=== PATIENT | male | born 1970 | race Caucasian/White ===

== ENCOUNTER 2019-01-09 09:50 | Day surgery (SDC) | payer OTHER ==
[2019-01-09] VITALS (7 sets, daily range): BP systolic 103–121; BP diastolic 69–86; PULSE 50–65; TEMP 97.8–98.5
[~2019-01-09] VITALS: Ht 182.9 cm; Wt 77.7 kg
[~2019-01-09 09:50] MED LIST: AMOXICILLIN 8751 TAB PO; PERCOCET 325 MG1 TA2 PO; VICODIN 5/5001 UDTAB PO
--- NOTE | 2019-01-09 14:46 | NUR ---
PT RETURNED PER CART INTO BAY1 AFTER PROCEDURE. A/OX3, DENIES PAIN, DISCOMFORT OR NAUSEA. PRESENT. OFFERED FLUIDS, TOLERATING SIPS WELL. WILL CONT TO MONITOR PROGRESSION.
--- NOTE | 2019-01-09 14:50 | NUR ---
PT TOLERATING TOAST AND COLA. VSS, A/OX3. DENIES NAUSEA, PAIN OR DISCOMFORT. WILL CONT TO MONITOR.
--- NOTE | 2019-01-09 14:52 | NUR ---
PT TOLERATED FOOD AND FLUIDS WITHOUT DIFFICULTY. IV DISCONTINUED WITHOUT PROBLEMS. IV SITE WITHOUT PAIN, REDNESS OR SWELLING. DISMISSAL INSTRUCTIONS GIVEN. PT AND VOICE UNDERSTANDING. PT DISCHARGED THROUGH PATIENT ENTRANCE TO FAMILY CAR.
== END 2019-01-09 14:56 | disposition home or self-care (01) ==
LOC: SDCO 09:50
DX: Z12.11 Encounter for screening for malignant neoplasm of colon (principal); D12.0 Benign neoplasm of cecum; Z83.71 Family history of colonic polyps; N41.9 Inflammatory disease of prostate, unspecified
CPT/HCPCS: J2250; J3010; J7030

== ENCOUNTER 2021-07-03 07:17 | Emergency (ER) | payer OTHER ==
[~2021-07-03] VITALS: Ht 182.9 cm; Wt 80.9 kg
[2021-07-03 07:22] VITALS: TEMP 98
[2021-07-03 07:37] LABS: COLLECTION METHOD CLEAN CATCH
[2021-07-03 07:45] LABS: BASO # 0.1 K/mm3 (0.0-0.2); BASO % 0.9 % (0.0-2.0); EOS # 0.2 K/mm3 (0.0-0.7); EOS % 2.7 % (0.0-4.0); GRAN # 2.6 K/mm3 (1.4-6.5); GRAN % 45.5 % (42.2-75.2); HEMATOCRIT 42.9 % (42.0-52.0); HEMOGLOBIN 14.7 g/dl (13.5-18.0); LYMPH # 2.1 K/mm3 (1.2-3.4); LYMPH % 37.9 % (20.0-51.0); MEAN CELL VOLUME 92 fl (80.0-100.0); MEAN CORPUSCULAR HEMOGLOBIN 31 pg (27-31); MEAN CORPUSCULAR HGB CONC 34 g/dl (33.0-37.0); MONO # 0.7 K/mm3 (0.1-0.6); MONO % 12.8 % (1.7-9.3); PLATELET COUNT 188 K/mm3 (130-400); RED BLOOD COUNT 4.69 M/mm3 (4.20-5.60); REDCELL DISTRIBUTION WIDTH-CV 12.3 % (11.5-14.5)
[2021-07-03 07:51] LABS: MUCOUS Present (NOT PRESENT); PH 5 (5-8); SQUAMOUS EPITHELIAL None Seen /hpf (0-10); URINE APPEARANCE Cloudy (CLEAR/HAZY); URINE BACTERIA None Seen /hpf (NONE SEEN); URINE BILIRUBIN Negative (NEGATIVE); URINE BLOOD 3+ (NEGATIVE); URINE COLOR Yellow (YELLOW); URINE GLUCOSE Negative (NEGATIVE); URINE KETONE Negative (NEGATIVE); URINE LEUKOCYTE ESTERASE Negative (NEGATIVE); URINE NITRATE Negative (NEGATIVE); URINE PROTEIN(semi-quant) 1+ (NEGATIVE); URINE RBC >50 /hpf (0-2); URINE UROBILINOGEN Negative (NEGATIVE)
[2021-07-03 08:04] LABS: ALBUMIN 4.1 gm/dL (3.5-5.0); BILIRUBIN,TOTAL 1.5 mg/dL (0.2-1.2); C-REACTIVE PROTEIN 0.03 mg/dL (0.00-0.50); CREATININE, serum 1.01 mg/dL (0.72-1.25); POTASSIUM 3.8 mmol/L (3.5-4.5); TOTAL PROTEIN 7.1 gm/dL (6.2-8.1)
[2021-07-03] MEDS ORDERED: NORCO 325 MG-51 TAB PO (08:14)
[2021-07-03 08:20] VITALS: BP 139/86; PULSE 54
== END 2021-07-03 08:27 | disposition home or self-care (01) ==
LOC: COL.ER 07:17
PROVIDERS: Family Medicine
DX: N20.0 Calculus of kidney (principal)
CPT/HCPCS: J1885; J2270; J2405; J7120